=== PATIENT | male | born 1985 | race Caucasian/White ===

== ENCOUNTER 2020-10-15 05:10 | Emergency (ER) | payer SELFPAY ==
[~2020-10-15] VITALS: Ht 170.2 cm; Wt 89.8 kg
[2020-10-15 05:22] VITALS: BP 126/81
--- NOTE | 2020-10-15 05:32 | NUR ---
PT BIB SELF FOR C/O RLE SWELLING. PT REPORTS HE HAS HAD INTERMITTENT SWELLING OF BILATERAL LE SINCE APRIL, HOWEVER THE LAST 3 DAYS HIS RLE HAS BECOME RED AND SWOLLEN. PT DESCRIBES PAIN "HEAVY" WITH PAIN SCALE 8/10. POSITIVE SENSATION. DENIES NUMBNESS OR TINGLING. CAP REFILL < 3 SECONDS. DENIES OTC MEDICATIONS FOR PAIN. MED HX: DENIES ALLERGIES: DENIES
--- NOTE | 2020-10-15 06:06 | NUR ---
JORGE BOLANOS AT BEDSIDE,
[2020-10-15] MEDS ORDERED: PIPERACILLIN/TAZOBACTAM 3.375 GM in DEXTROSE 5% 50 ML IV ONE (06:15)
[2020-10-15] MEDS ORDERED: VANCOMYCIN 1,000 MG in DEXTROSE 5% 250 ML IV ONE (06:15)
[2020-10-15] MEDS ORDERED: NACL 0.9% 1,000 ML IV SCH (06:15)
[2020-10-15] MEDS ORDERED: KETOROLAC 30 MG/ML VIAL IVP ONE (06:15)
--- NOTE | 2020-10-15 06:30 | NUR ---
JORGE AT BEDSIDE FOR ULTRASOUND GUIDED IV. LABS DRAWN AND TAKEN TO LAB.
[2020-10-15] MEDS ORDERED: PIPERACILLIN/TAZOBACTAM 3.375 GM VIAL IV ONE (06:49)
--- NOTE | 2020-10-15 06:49 | NUR ---
Ultrasound at bedside.
--- NOTE | 2020-10-15 07:15 | NUR ---
REPORT GIVEN TO GÓMEZ DEL CID FOR CONTINUITY OF CARE.
--- NOTE | 2020-10-15 07:15 | NUR ---
REPORT RECEIVED FROM DAVIE MAGAÑA, TRANSFER OF CARE AT THIS TIME
[2020-10-15 07:27] LABS: BASOPHILS % (AUTO) 0.3 % (0.0-2.0); EOSINOPHILS % (AUTO) 0.1 % (0.0-4.0); HEMATOCRIT 33.1 % (36-52); LYMPHOCYTES # (AUTO) 1.2 K/uL (2.0-11.5); LYMPHOCYTES % (AUTO) 10.2 % (20.5-51.1); MEAN CORPUSCULAR HEMOGLOBIN 28 pg (27-31); MEAN CORPUSCULAR HGB CONC 33 g/dL (33-37); MEAN CORPUSCULAR VOLUME 83.1 fL (80-94); MONOCYTES # (AUTO) 0.7 K/uL (0.8-1.0); MONOCYTES % (AUTO) 6.1 % (1.7-9.3); NEUTROPHILS # (AUTO) 9.7 K/uL (1.8-7.7); NEUTROPHILS % (AUTO) 83.3 % (42.2-75.2); PLATELET COUNT (AUTO) 206 K/uL (140-450); RED BLOOD CELL COUNT(AUTO) 3.98 MIL/uL (4.20-6.10); RED CELL DISTRIBUTION WIDTH 14.7 % (11.6-13.7); WHITE BLOOD COUNT (AUTO) 11.6 K/uL (4.8-10.8)
[2020-10-15 07:33] LABS: ANION GAP 10.3 (8-16); CARBON DIOXIDE 27.4 mmol/L (21-32); CREATININE 1.3 mg/dL (0.6-1.3); POTASSIUM 3.7 mmol/L (3.5-5.1)
[2020-10-15] MEDS ORDERED: VANCOMYCIN 1,000 MG VIAL ONE (07:49)
--- NOTE | 2020-10-15 08:05 | NUR ---
PT STATES THAT HE DOES NOT WANT TO GET ADMITTED TO HOSPITAL. PT WAS INFORMED BY ERMD OF RISKS INVOLVED OF NOT WANTING ADMISSION TO HOSPITAL AND VERBALIZED UNDERSTAND AND SIGNED AMA. PER ERMD TO DISCHARGE PT WHEN ANTIBIOTICS ARE DONE.
[2020-10-15] MEDS ORDERED: SULF-59 PO (08:06)
[2020-10-15] MEDS ORDERED: CEPH-588 PO (08:06)
--- NOTE | 2020-10-15 09:00 | NUR ---
PT ALERT AND AWAKE, BREATHING EVEN AND UNLABORED. NO DISTRESS NOTED. ALL NEEDS MET AT THIS TIME. WILL CONTINUE TO MONITOR.
--- NOTE | 2020-10-15 09:45 | NUR ---
Patient discharged with v/s stable. Written and verbal after care instructions about cellulitis, edema given and explained. Patient alert, oriented and verbalized understanding of instructions. Ambulatory with steady gait. All questions addressed prior to discharge. ID band removed. Patient advised to follow up with PMD. Rx of keflex, bactrim DS given. Patient educated on indication of medication including possible reaction and side effects. Opportunity to ask questions provided and answered.
[2020-10-15 09:46] VITALS: BP 120/70
== END 2020-10-15 09:45 | disposition left against medical advice (07) ==
LOC: MED 05:10
DX: L03.115 Cellulitis of right lower limb (principal); Z20.822 Contact with and (suspected) exposure to COVID-19; F17.200 Nicotine dependence, unspecified, uncomplicated
CPT/HCPCS: 36415; 73590; 80048; 81002; 83605; 85025; 85651; 86140; 87040; 87426; 93971; 96361; 96365; 96366; 96367; 96375; 99285; J1885; J2543; J3370; J7030

== ENCOUNTER 2021-06-19 20:11 | Emergency (ER) | payer SELFPAY ==
[~2021-06-19] VITALS: Ht 152.4 cm; Wt 77.1 kg
[~2021-06-19 20:11] MED LIST: CEPH-588 PO; SULF-59 PO
[2021-06-19 20:19] VITALS: BP 138/72
--- NOTE | 2021-06-19 20:26 | NUR ---
PT TAKEN TO BED 8
--- NOTE | 2021-06-19 20:28 | NUR ---
Patient BIB by family from home. C/O right leg pain x 3-4 days. Patient reported, had cellulitis right leg and came to hospital. Rx IV Antibiotics and sent home with prescription. Patient did not refill medication. A/O,X4, right lower leg pain, redness, swelling, pain rate 7/10.
--- NOTE | 2021-06-19 22:05 | NUR ---
Dr. Yates examining patient.
[2021-06-19] MEDS ORDERED: CLINDAMYCIN IV ONE (22:20)
[2021-06-19] MEDS ORDERED: DEXTROSE 5% IV ONE (22:20)
[2021-06-19] MEDS ORDERED: NACL 0.9% 1,000 ML IV SCH (22:20)
--- NOTE | 2021-06-19 22:30 | NUR ---
Blood for labwork drawn from left hand per melter supervisor. Patient tolerated well.
[2021-06-19 22:43] LABS: BASOPHILS # (AUTO) 0.1 K/uL (0.00-0.22); BASOPHILS % (AUTO) 1.3 % (0.0-2.0); EOSINOPHILS % (AUTO) 0.2 % (0.0-4.0); HEMATOCRIT 31.9 % (36-52); HEMOGLOBIN 10.4 g/dL (12.0-18.0); LYMPHOCYTES % (AUTO) 8.8 % (20.5-51.1); MEAN CORPUSCULAR HEMOGLOBIN 26 pg (27-31); MEAN CORPUSCULAR HGB CONC 33 g/dL (33-37); MEAN CORPUSCULAR VOLUME 79.5 fL (80-94); MONOCYTES # (AUTO) 0.9 K/uL (0.8-1.0); MONOCYTES % (AUTO) 8.3 % (1.7-9.3); NEUTROPHILS # (AUTO) 8.8 K/uL (1.8-7.7); NEUTROPHILS % (AUTO) 81.4 % (42.2-75.2); PLATELET COUNT (AUTO) 325 K/uL (140-450); RED BLOOD CELL COUNT(AUTO) 4.01 MIL/uL (4.20-6.10); RED CELL DISTRIBUTION WIDTH 14.7 % (11.6-13.7); WHITE BLOOD COUNT (AUTO) 10.8 K/uL (4.8-10.8)
[2021-06-19] MEDS ORDERED: CLINDAMYCIN 600 MG/4 ML VIAL ONE (22:47)
[2021-06-19 23:00] LABS: ANION GAP 14.6 (8-16); CARBON DIOXIDE 25.6 mmol/L (21-32); CREATININE 0.8 mg/dL (0.6-1.3); POTASSIUM 3.2 mmol/L (3.5-5.1)
--- NOTE | 2021-06-20 00:20 | NUR ---
Patient appears to be resting comfortably in bed. Vital Signs within normal limits. Respirations even and unlabored.
[2021-06-20] MEDS ORDERED: MUPI2CRE22 TP (00:21)
[2021-06-20] MEDS ORDERED: CLIN300C52 PO (00:21)
[2021-06-20 00:30] VITALS: BP 138/72
--- NOTE | 2021-06-20 00:30 | NUR ---
Patient discharged with v/s stable. Written and verbal after care instructions given and explained. Patient alert, oriented and verbalized understanding of instructions. Ambulatory with steady gait. All questions addressed prior to discharge. ID band removed. Patient advised to follow up with PMD. Rx of Clindamycin and Mupiracin given. Patient educated on indication of medication including possible reaction and side effects. Opportunity to ask questions provided and answered.
== END 2021-06-20 00:30 | disposition home or self-care (01) ==
LOC: MED 20:11
DX: L03.115 Cellulitis of right lower limb (principal); Z71.6 Tobacco abuse counseling; F17.210 Nicotine dependence, cigarettes, uncomplicated; Z79.2 Long term (current) use of antibiotics
CPT/HCPCS: 36415; 80048; 85025; 87040; 96365; 99285; J3490; J7030

== ENCOUNTER 2021-08-17 23:45 | Emergency (ER) | payer SELFPAY ==
[~2021-08-17] VITALS: Ht 172.7 cm; Wt 68.0 kg
[~2021-08-17 23:45] MED LIST changes: +CLIN300C52 PO; +MUPI2CRE22 TP
[2021-08-17 23:49] VITALS: BP 114/77
--- NOTE | 2021-08-17 23:57 | NUR ---
PT W/C ASSISTED TO BED #10
--- NOTE | 2021-08-18 00:11 | NUR ---
36 YO/M BIB SIG OTHER W C/O R ANKLE PAIN 11/10 THROBBING CONSTANT NON-RAD XAPPROX 11 HOURS S/P JUMPING OFF A WALL AND TWISTING ANKLE OUTWARDS, + SWELLING. PT HAS LIMITED ROM TO R FOOT/ANKLE, SWELLING NOTED TO R LEG/FOOT/ANKLE. PT TOOK MOTRIN X45 MINS AGO. BREATHING EVEN AND UNLABORED., PT LAYING IN BED LOCKED IN LOWEST POSITIONS W X1 SIDERAIL UP, SIG OTHER AT OTHER BEDSIDE. PMH: DENIES ALLERGIES: DENIES
--- NOTE | 2021-08-18 01:22 | NUR ---
pt reports pain has improved.
--- NOTE | 2021-08-18 01:24 | NUR ---
posterior short leg splint applied to R leg, splint verified and approved by magdalena queen.
--- NOTE | 2021-08-18 01:26 | NUR ---
Note ilan in ED - 08/18/21 at 0127 by MOE pt sitting in bed talking and laughing w mother. breathing even and unlabored. awaiting discharge. will continue to monitor.
[2021-08-18] MEDS ORDERED: NAPR-54 PO (01:41)
--- NOTE | 2021-08-18 01:55 | NUR ---
PT CLEARED FOR DISCHARGE BY DR. PITT. ALL DISCHARGE INSTRUCTIONS AND MEDICATION ADMINISTRATION/SIDE EFFECTS EXPLAINED BY DR. PITT. RX OF NAPROSYN GIVEN.
== END 2021-08-18 01:55 | disposition home or self-care (01) ==
LOC: MED 23:45
DX: S82.831A Other fracture of upper and lower end of right fibula, initial encounter for closed fracture (principal); F17.210 Nicotine dependence, cigarettes, uncomplicated; F12.90 Cannabis use, unspecified, uncomplicated; F15.90 Other stimulant use, unspecified, uncomplicated; Z79.899 Other long term (current) drug therapy; W19.XXXA Unspecified fall, initial encounter; Y93.39 Activity, other involving climbing, rappelling and jumping off; Y92.89 Other specified places as the place of occurrence of the external cause; Y99.8 Other external cause status
CPT/HCPCS: 29515; 73610; 99283; Q0092

== ENCOUNTER 2022-05-23 19:37 | Inpatient (IN) | payer MEDICAID ==
[~2022-05-23] VITALS: Ht 170.2 cm; Wt 81.6 kg
[~2022-05-23 19:37] MED LIST changes: +NAPR-54 PO
[2022-05-23 20:38] VITALS: BP 116/62
[2022-05-23] MEDS ORDERED: VANCOMYCIN 1,000 MG in DEXTROSE 5% 250 ML IV ONE (23:30)
[2022-05-23] MEDS ORDERED: PIPERACILLIN/TAZOBACTAM 3.375 GM in DEXTROSE 5% 50 ML IV ONE (23:30)
[2022-05-23] MEDS ORDERED: LORazepam 2 MG/ML VIAL IVP ONE (23:30)
[2022-05-23] MEDS ORDERED: KETOROLAC 30 MG/ML VIAL IVP ONE (23:30)
[2022-05-23] MEDS ORDERED: NACL 0.9% 1,000 ML IV ONE (23:30)
--- NOTE | 2022-05-24 | NUR ---
PATIENT HAD A FEVER OF 102.0. ADMINISTERED TYLENOL TO PATIENT AND PROVIDED COOLING MEASURES. RECHECKED PATIENT'S VITALS AN HOUR LATER. CONTINUED TO MONITOR PATIENT. PATIENT'S TEMPERATURE WENT DOWN TO 98.4. PATIENT IS BREATHING NORMAL WITH SYMMETRICAL RISE AND FALL OF CHEST. WILL CONTINUE TO OBSERVE PATIENT.
[2022-05-24 00:07] LABS: BASOPHILS % (AUTO) 0.1 % (0.0-2.0); EOSINOPHILS # (AUTO) 0.1 K/uL (0-0.4); EOSINOPHILS % (AUTO) 0.2 % (0.0-4.0); HEMATOCRIT 30.3 % (36-52); HEMOGLOBIN 9.8 g/dL (12.0-18.0); LYMPHOCYTES # (AUTO) 0.7 K/uL (2.0-11.5); LYMPHOCYTES % (AUTO) 2.6 % (20.5-51.1); MEAN CORPUSCULAR HEMOGLOBIN 27 pg (27-31); MEAN CORPUSCULAR HGB CONC 32 g/dL (33-37); MEAN CORPUSCULAR VOLUME 83.6 fL (80-94); MONOCYTES # (AUTO) 0.7 K/uL (0.8-1.0); MONOCYTES % (AUTO) 2.6 % (1.7-9.3); NEUTROPHILS % (AUTO) 94.5 % (42.2-75.2); PLATELET COUNT (AUTO) 399 K/uL (140-450); RED BLOOD CELL COUNT(AUTO) 3.62 MIL/uL (4.20-6.10)
[2022-05-24 00:40] LABS: ANION GAP 12.6 (8-16); CARBON DIOXIDE 26.2 mmol/L (21-32); CREATININE 1.1 mg/dL (0.6-1.3); POTASSIUM 3.8 mmol/L (3.5-5.1)
[2022-05-24 00:42] LABS: WHITE BLOOD COUNT (AUTO) 27.5 K/uL (4.8-10.8)
[2022-05-24 01:01] LABS: TOTAL BILIRUBIN 0.7 mg/dL (0.0-1.0)
[2022-05-24 01:02] LABS: ALBUMIN 2.3 g/dL (3.4-5.0)
[2022-05-24] MEDS ORDERED: CALCIUM GLUCONATE 10% 1,000 MG in NACL 0.9% 50 ML IV ONE (01:30)
[2022-05-24] MEDS ORDERED: NACL 0.9% 1,000 ML IV ONE ×2 (01:30→06:05)
[2022-05-24] MEDS ORDERED: VANCOMYCIN 1,000 MG VIAL ONE (02:25)
[2022-05-24] MEDS ORDERED: LORazepam 2 MG/ML VIAL ONE (02:25)
[2022-05-24] MEDS ORDERED: KETOROLAC 30 MG/ML VIAL ONE (02:25)
[2022-05-24] MEDS ORDERED: PIPERACILLIN/TAZOBACTAM 3.375 GM VIAL IV ONE ×3 (02:26→13:56)
[2022-05-24] MEDS ORDERED: HYDROcodone/APAP 7.5/325 MG 1 TAB PO PRN (07:00)
[2022-05-24] MEDS ORDERED: ZOLPIDEM 5 MG TAB PO PRN (07:00)
[2022-05-24] MEDS: NACL 0.9% 1,000 ML IV SCH ×2 (07:00→23:40)
[2022-05-24] MEDS ORDERED: ONDANSETRON 4 MG/2 ML VIAL IM/IVP PRN (07:00)
[2022-05-24] MEDS ORDERED: guaiFENesin DM 200/20 MG-10 ML 10 ML UDC PO PRN (07:00)
[2022-05-24] MEDS ORDERED: DOCUSATE SODIUM 100 MG GELCAP PO PRN (07:00)
[2022-05-24] MEDS ORDERED: POTASSIUM CHLORIDE 10 MEQ TABER PO PRN (07:00)
[2022-05-24] MEDS ORDERED: VANCOMYCIN PER PHARMACY MC PRN (07:00)
--- NOTE | 2022-05-24 08:00 | NUR ---
PATIENT ADMITTED TO TELEMETRY WITH DX OF RLE CELLULITIS. PATIENT HAS PMH DVT, CELLULITIS AND POLYSUBSTANCE ABUSE. PATIENT STATES HIS RIGHT LEG HAS BEEN SWELLING THROUGHOUT THE PAST 5 YEARS. REDNESS IS NOTED FROM RIGHT TOES TO RIGHT KNEE. RIGHT LEG IS SWOLLEN AND BLISTERED AND IS WARM TO TOUCH. PATIENT IS OBTUNDED AND FALLS ASLEEP DURING ASSESSMENT. PATIENT NEEDS REORIENTATION AND REFOCUSING IN ORDER TO ANSWER YES OR NO QUESTIONS. RIGHT IJ CENTRAL LINE IS PATENT AND FLOWING WELL. LUNG SOUNDS ARE CLEAR, WILL CONTINUE WITH PLAN OF CARE.
[2022-05-24] MEDS: PANTOPRAZOLE 40 MG TABEC PO SCH (09:00)
[2022-05-24 09:02] LABS: ANION GAP 9.9 (8-16); CARBON DIOXIDE 27.4 mmol/L (21-32); CREATININE 1.1 mg/dL (0.6-1.3); POTASSIUM 3.3 mmol/L (3.5-5.1)
[2022-05-24 09:03] LABS: PROTHROMBIN TIME 11.4 secs (10.8-13.4)
[2022-05-24 09:08] LABS: CHOL/HDL RATIO 2.3 (1-4.5); MAGNESIUM 1.7 mg/dL (1.8-2.4); PHOSPHORUS 3.4 mg/dL (2.5-4.9)
--- NOTE | 2022-05-24 09:30 | NUR ---
DR. EUBANKS AT BEDSIDE, ASSESSING PATIENT, NO NEW ORDERS AT THIS TIME
[2022-05-24] MEDS ORDERED: CALCIUM GLUC 1 GM/50 mL NS BAG 50 ML IV ONE (10:17)
--- NOTE | 2022-05-24 10:53 | NUR ---
PATIENT ASLEEP IN BED, MNO S/S OF ACUTE DISTRESS NOTED
[2022-05-24 13:07] LABS: BARBITURATE, URINE NEGATIVE ng/ml (NEG <=200)
[2022-05-24 13:08] LABS: BENZODIAZEPINE, URINE NEGATIVE ng/mL (NEG <=200); CANNABINOID, URINE NEGATIVE ng/mL (NEG <=50); COCAINE, URINE NEGATIVE ng/mL (NEG <=300); OPIATE, URINE NEGATIVE ng/mL (NEG <=2000); PHENCYCLIDINE SCREEN,URINE NEGATIVE ng/mL (NEG <=25)
[2022-05-24] MEDS: PIPERACILLIN/TAZOBACTAM 3.375 GM in DEXTROSE 5% 50 ML IV SCH ×2 (13:59→22:30)
--- NOTE | 2022-05-24 14:40 | NUR ---
PATIENT ASLEEP IN BED, NO S/S OF ACUTE DISTRESS
[2022-05-24] MEDS ORDERED: VANCOMYCIN HCL 1.25 GM in DEXTROSE 5% 250 ML IV SCH (15:00)
--- NOTE | 2022-05-24 15:30 | NUR ---
Patient will be admitted to care of DR. EUBANKS. Admited to TELEMETY. Will go to [id number]. Belongings list completed. Report to GÓMEZ URENA.
--- NOTE | 2022-05-24 19:30 | NUR ---
RECEIVED REPORT FROM DAY SHIFT NURSE AYANNA FOR CONTINUITY OF CARE. PATIENT IS A&O X4. PATIENT IS ON ROOM AIR; BREATHING IS NORMAL WITH SYMMETRICAL RISE AND FALL OF CHEST. IV IS A TRIPLE LUMEN PICCLINE IN R JUGULAR AND A 20G LAC. PATIENT IS RUNNING NS 60. PATIENT IS SITTING UP IN BED, BED IS IN LOWEST POSITION WITH WHEELS LOCKED AND CALL LIGHT IN PLACE. WILL CONTINUE TO OBSERVE PATIENT.
[2022-05-24] MEDS: VANCOMYCIN 1.25GM PREMIX 250 ML IV SCH (19:38)
[2022-05-24 20:00] VITALS: BP 101/61
[2022-05-24] MEDS: ACETAMINOPHEN 325 MG TAB PO PRN (21:33)
[2022-05-25] VITALS: BP 104/42
[2022-05-25 04:00] VITALS: BP 109/53
--- NOTE | 2022-05-25 04:00 | NUR ---
PATIENT SLEPT THROUGHOUT THE NIGHT. BREATHING IS NORMAL WITH SYMMETRICAL RISE AND FALL OF CHEST. WILL CONTINUE TO OBSERVE PATIENT.
[2022-05-25] MEDS: PIPERACILLIN/TAZOBACTAM 3.375 GM in DEXTROSE 5% 50 ML IV SCH ×2 (04:15→13:31)
[2022-05-25] MEDS: VANCOMYCIN 1.25GM PREMIX 250 ML IV SCH ×2 (06:02→19:05)
--- NOTE | 2022-05-25 07:15 | NUR ---
ENDORSED TO DAY SHIFT NURSE JACQUIE FOR CONTINUITY OF CARE. PATIENT IS STABLE.
[2022-05-25 07:37] LABS: ANION GAP 13.1 (8-16); CARBON DIOXIDE 23.5 mmol/L (21-32); POTASSIUM 3.6 mmol/L (3.5-5.1)
[2022-05-25 07:41] LABS: BASOPHILS % (AUTO) 0.1 % (0.0-2.0); HEMOGLOBIN 8.4 g/dL (12.0-18.0); LYMPHOCYTES # (AUTO) 1.1 K/uL (2.0-11.5); LYMPHOCYTES % (AUTO) 4.1 % (20.5-51.1); MEAN CORPUSCULAR HEMOGLOBIN 27 pg (27-31); MEAN CORPUSCULAR HGB CONC 32 g/dL (33-37); MEAN CORPUSCULAR VOLUME 82.5 fL (80-94); MONOCYTES # (AUTO) 0.8 K/uL (0.8-1.0); MONOCYTES % (AUTO) 2.7 % (1.7-9.3); NEUTROPHILS # (AUTO) 26.4 K/uL (1.8-7.7); NEUTROPHILS % (AUTO) 93.1 % (42.2-75.2); PLATELET COUNT (AUTO) 411 K/uL (140-450); RED BLOOD CELL COUNT(AUTO) 3.15 MIL/uL (4.20-6.10); RED CELL DISTRIBUTION WIDTH 16.5 % (11.6-13.7)
[2022-05-25 07:43] LABS: WHITE BLOOD COUNT (AUTO) 28.3 K/uL (4.8-10.8)
[2022-05-25 08:00] VITALS: BP 91/55
[2022-05-25] MEDS: PANTOPRAZOLE 40 MG TABEC PO SCH (08:18)
[2022-05-25] MEDS ORDERED: MAGNESIUM OXIDE 400 MG TAB PO SCH (09:00)
--- NOTE | 2022-05-25 09:38 | NUR ---
PATIENT HAS BEEN SCREENED AND CATEGORIZED MODERATE NUTRITION RISK. PATIENT WILL BE SEEN WITHIN 3-5 DAYS OF ADMISSION. / REVIEWED BY CONOR PEDRAZA RD
--- NOTE | 2022-05-25 10:54 | NUR ---
WOUND CARE NOTE: PT. ASLEEP AND NOT AROUSABLE WHEN HIS NAME IS CALLED AND WHEN RLE LIFTED NO RESPOND EITHER, SNORE LOUDLY. RLE CELLULITIS NO OPEN WOUND SWELLING WITH ERYTHEMA FROM ABOVE KNEE TO DORSAL FOOT WITH MULTIPLE DRY PEELING BROWN SCABS. KEEP RLE ELEVATED, PAIN 0/10. POC DISCUSSED WITH PRIMARY RN KEIRY SUTTON PAINT MULTIPLE SCABS WITH BETADINE BID AND ELECTRICAL INSTRUMENTATION TECHNICIAN.
[2022-05-25 12:00] VITALS: BP 101/52
--- NOTE | 2022-05-25 12:18 | NUR ---
DC PLANNIN YRS OLD MALE PATIENT WAS ADMITTED FROM HOME WITH A DX OF CELLULITIS. PATIENT HAS A HX OF METH USE. DR STONE PERFORMED RIGHT LOWER LEG 4-COMPARTMENT FASCIOTOMY. ADMINISTERED IVF, IV ABX ZOSYN AND CLINDAMYCIN. DC PLAN TO GO HOME WITH HOME HEALTH CM TO FOLLOW Addendum: 06/02/22 at 1635 by Keesha Reed RN DC PLANNING: CALLED [facility] SPOKE WITH [facility] WILL BE HERE BETWEEN 2-4 HRS . NOTIFIED JUAN MAGAÑA ONCE WOUND VAC ARRIVED TO CHANGE THE WOUND VAC AND DC PATIENT HOME PER [facility] SHOWED HIM HOW TO DO IT VERBALIZED UNDERSTANDING. ARRANGED HOME HEALTH WITH [facility] [phone] WILL START THE CARE TOMORROW
[2022-05-25] MEDS: GAUZE TP SCH (13:32)
[2022-05-25 16:00] VITALS: BP 91/57
[2022-05-25] MEDS: NACL 0.9% 1,000 ML IV SCH (16:57)
--- NOTE | 2022-05-25 19:05 | NUR ---
ENDORSE PATIENT IN STABLE CONDITION TO PM SHIFT NURSE IN PRO-OP NPO STATUS, CENTER LINE R. TREY INFUSING VANCOMYCIN. PRO-OP DOCUMENT START, CONSENT SIGNED BY PATIENT
[2022-05-25 20:00] VITALS: BP 114/55
--- NOTE | 2022-05-25 20:00 | NUR ---
SURGICAL STAFF/TRANSPORTERS TOOK PATIENT AWAY MINUTES AGO FOR SURGERY VIA [facility]. PT CONDITION STABLE.
[2022-05-25] MEDS ORDERED: PROPOFOL 200 MG/20 ML VIAL IV ONE ×2 (20:12→20:59)
[2022-05-25] MEDS ORDERED: HYDROmorphone PFS 2 MG/ML SYR ONE ×2 (20:14→22:04)
[2022-05-25] MEDS ORDERED: MIDAZOLAM 2 MG/2 ML VIAL ONE ×2 (20:15→20:59)
[2022-05-25] MEDS ORDERED: SUCCINYLCHOLINE CHLORIDE 200 MG/10 ML VIAL IVP ONE ×2 (20:17→20:59)
[2022-05-25] MEDS ORDERED: METOCLOPRAMIDE 10 MG/2 ML INJ VIAL ONE ×2 (20:17→20:59)
[2022-05-25] MEDS ORDERED: ONDANSETRON 4 MG/2 ML VIAL ONE ×2 (20:17→20:59)
[2022-05-25] MEDS ORDERED: LIDOCAINE 2% 1000 MG/50 ML VIAL INJ ONE (20:32)
[2022-05-25] MEDS ORDERED: BUPIVACAINE-MPF 0.25% 30 ML VIAL INJ ONE (20:33)
[2022-05-25] MEDS ORDERED: fentaNYL citrate 0.05 MG/ML VIAL ONE ×2 (20:48→20:59)
[2022-05-25] MEDS ORDERED: KETAMINE 500 MG/5 ML VIAL ONE ×2 (20:51→20:59)
[2022-05-25] MEDS ORDERED: ROCURONIUM 50 MG/5 ML VIAL IV ONE ×2 (20:59→21:40)
[2022-05-25] MEDS ORDERED: HYDROmorphone 1 MG/ML AMP ONE (20:59)
[2022-05-25] MEDS ORDERED: SEVOFLURANE 250 ML BTL INH ONE (20:59)
[2022-05-25] MEDS ORDERED: NEOSTIGMINE 1:1000 10 MG/10 ML VIAL ONE (21:43)
[2022-05-25] MEDS ORDERED: GLYCOPYRROLATE 0.2 MG/ML VIAL ONE (21:44)
[2022-05-25] MEDS: DEXT 5% /NACL 0.9% 1,000 ML IV SCH (21:55)
[2022-05-25] MEDS ORDERED: ONDANSETRON 4 MG/2 ML VIAL IV PRN (21:55)
[2022-05-25] MEDS: HYDROmorphone 1 MG/ML AMP IVP PRN ×4 (22:00→22:40)
[2022-05-25] MEDS ORDERED: MEPERIDINE 25 MG/ML SYR IVP PRN (22:00)
[2022-05-25] MEDS ORDERED: ONDANSETRON 4 MG/2 ML VIAL IVP PRN (22:00)
[2022-05-25] MEDS: LACTATED RINGERS 1,000 ML IV SCH (22:00)
--- NOTE | 2022-05-25 22:55 | NUR ---
PT WAS TRANSPORTED BY HOSPITAL FROM OPERATING ROOM VIA GURNEY AND BACK TO UNIT, ROOM AND BED IN STABLE CONDITION.
--- NOTE | 2022-05-25 23:00 | NUR ---
PT ARRIVED BACK ON UNIT FROM OR VIA GURPAXTON AND ACCOMPANIED BY HOSPITAL STAFF NURSE. CONDITION STABLE.
[2022-05-26 04:00] VITALS: BP 103/57
[2022-05-26] MEDS: CLINDAMYCIN 600MG/D5W PM 50 ML IV SCH ×3 (04:43→23:35)
[2022-05-26] MEDS: LACTATED RINGERS 1,000 ML IV SCH ×3 (04:50→05:45)
[2022-05-26] MEDS: VANCOMYCIN 1.25GM PREMIX 250 ML IV SCH ×2 (06:02→19:00)
[2022-05-26 08:00] VITALS: BP 100/51
[2022-05-26 08:54] LABS: BASOPHILS % (AUTO) 0.1 % (0.0-2.0); EOSINOPHILS % (AUTO) 0.1 % (0.0-4.0); HEMATOCRIT 22.1 % (36-52); HEMOGLOBIN 7.1 g/dL (12.0-18.0); LYMPHOCYTES % (AUTO) 3.1 % (20.5-51.1); MEAN CORPUSCULAR HEMOGLOBIN 27 pg (27-31); MEAN CORPUSCULAR HGB CONC 32 g/dL (33-37); MEAN CORPUSCULAR VOLUME 82.6 fL (80-94); MONOCYTES % (AUTO) 3.3 % (1.7-9.3); NEUTROPHILS # (AUTO) 29.9 K/uL (1.8-7.7); NEUTROPHILS % (AUTO) 93.4 % (42.2-75.2); PLATELET COUNT (AUTO) 413 K/uL (140-450); RED BLOOD CELL COUNT(AUTO) 2.67 MIL/uL (4.20-6.10); RED CELL DISTRIBUTION WIDTH 16.8 % (11.6-13.7)
[2022-05-26] MEDS: PANTOPRAZOLE 40 MG TABEC PO SCH (09:46)
[2022-05-26 10:19] LABS: ANION GAP 14.8 (8-16); CREATININE 0.9 mg/dL (0.6-1.3); POTASSIUM 3.8 mmol/L (3.5-5.1)
[2022-05-26 12:00] VITALS: BP 100/51
[2022-05-26] MEDS: GAUZE TP SCH (13:00)
--- NOTE | 2022-05-26 13:00 | NUR ---
DC PLANNING ASSESSMENT COMPLETE PLEASE REFER TO ASSESSMENT FOR DETAILS PT REPORTS TENTATIVE DC PLAN IS TO RETURN TO THE AREA IN WHICH HE TYPICALLY STAYS. PT REPORTS HE WILL ARRANGE TRANSPORTATION WITH FRIENDS OF HIS, ONCE CLEARED FOR DC. Addendum: 05/26/22 at 1512 by Sinan Bush SS Amended: Links added.
[2022-05-26 16:00] VITALS: BP 100/51
[2022-05-26 20:00] VITALS: BP 110/70
--- NOTE | 2022-05-26 20:00 | NUR ---
RECEIVED PT IN BED ASLEEP, EASILY AROUSABLE BY VERBAL STIMULI. DENIES PAIN. DENIES SHORTNESS OF BREATH. RLE DRESSING CLEAN DRY AND INTACT. SKIN WAMR AND DRY TO TOUCH. SAFETY PRECAUTION IN PLACE, CALL LIGHT IN REACH.
--- NOTE | 2022-05-26 21:44 | NUR ---
SPOKE WITH ALEKSANDER OF [facility], [place] TO GIVE CLIDAMYCIN AT 0000 AND 0500 TO GET BACK ON THE RIGHT SCHEDULE.
[2022-05-27] VITALS: BP 102/54
[2022-05-27] MEDS: GAUZE TP SCH ×2 (01:08→13:04)
[2022-05-27 04:00] VITALS: BP 105/58
[2022-05-27] MEDS: CLINDAMYCIN 600MG/D5W PM 50 ML IV SCH ×3 (05:05→20:56)
[2022-05-27] MEDS: VANCOMYCIN 1.25GM PREMIX 250 ML IV SCH ×3 (06:02→21:49)
--- NOTE | 2022-05-27 06:14 | NUR ---
PATIENT IS ASLEEP. NO S/SX OF PAIN NOR DISCOMFORT. ALL NEEDS ATTENDED TO. SAFETY PRECAUTIONS MAINTAINED DURING THE SHIFT, CALL LIGHT WITHIN REACH.
--- NOTE | 2022-05-27 07:12 | NUR ---
RECEIVED REPORT FROM NIGHTSHIFT NURSE FLAKITA FOR CONTINUITY OF CARE. PT IN STABLE CONDITION.
[2022-05-27 07:38] LABS: ANION GAP 11.2 (8-16); CARBON DIOXIDE 24.5 mmol/L (21-32); CREATININE 0.8 mg/dL (0.6-1.3); POTASSIUM 3.7 mmol/L (3.5-5.1)
[2022-05-27 07:44] LABS: BASOPHILS # (AUTO) 0.1 K/uL (0.00-0.22); BASOPHILS % (AUTO) 0.3 % (0.0-2.0); EOSINOPHILS # (AUTO) 0.1 K/uL (0-0.4); EOSINOPHILS % (AUTO) 0.4 % (0.0-4.0); HEMOGLOBIN 7.7 g/dL (12.0-18.0); LYMPHOCYTES # (AUTO) 1.5 K/uL (2.0-11.5); LYMPHOCYTES % (AUTO) 4.8 % (20.5-51.1); MEAN CORPUSCULAR HEMOGLOBIN 27 pg (27-31); MEAN CORPUSCULAR HGB CONC 32 g/dL (33-37); MEAN CORPUSCULAR VOLUME 82.7 fL (80-94); MONOCYTES # (AUTO) 1.2 K/uL (0.8-1.0); MONOCYTES % (AUTO) 3.7 % (1.7-9.3); NEUTROPHILS # (AUTO) 28.7 K/uL (1.8-7.7); NEUTROPHILS % (AUTO) 90.8 % (42.2-75.2); PLATELET COUNT (AUTO) 304 K/uL (140-450); RED CELL DISTRIBUTION WIDTH 16.7 % (11.6-13.7)
[2022-05-27 07:48] LABS: WHITE BLOOD COUNT (AUTO) 31.7 K/uL (4.8-10.8)
--- NOTE | 2022-05-27 07:48 | NUR ---
RECEIVED CALL FROM LAB, CRITICAL LAB VALUE WBC 31.7. DR. LYON NOTIFIED AND AWARE.
[2022-05-27 08:00] VITALS: BP 111/64
[2022-05-27] MEDS: DEXT 5% /NACL 0.9% 1,000 ML IV SCH ×2 (09:29→13:55)
[2022-05-27] MEDS: PANTOPRAZOLE 40 MG TABEC PO SCH (09:30)
--- NOTE | 2022-05-27 10:01 | NUR ---
SPOKE TO PT'S MOTHER REGARDING UPDATE ON PT'S CONDITION.
[2022-05-27] MEDS: MORPHINE SULFATE 2 MG/ML SYR IVP PRN ×2 (10:29→15:02)
--- NOTE | 2022-05-27 10:29 | NUR ---
MEDICATED PT WITH PRN MORPHINE AND TYLENOL FOR RIGHT LOWER EXTREMITY PAIN AND SWELLING.
[2022-05-27] MEDS: ACETAMINOPHEN 325 MG TAB PO PRN (10:30)
[2022-05-27] MEDS: HYDROmorphone 1 MG/ML AMP IVP PRN (13:04)
--- NOTE | 2022-05-27 13:05 | NUR ---
MEDICATED PRN DILAUDID FOR PAIN 10/10 FOR DRESSING CHANGE DONE BY INSTRUMENT MECHANIC .
--- NOTE | 2022-05-27 13:15 | NUR ---
WOUND CARE NOTE: WOUND ASSESSMENT DONE TO RLE S/P FASCIITIS/ SEPSIS. WOUND PHOTOS OBTAINS, PRIMARY RN WILLIE AT BED SIDE, POINT OUT TENDON EXPOSE AND NEED TO COVER WITH OIL EMULSION DRESSING. POC DISCUSSED WITH WILLIE. POC DISCUSSED WITH PT. PT. STATE HE WILL STAY WITH HIS MOTHER WHERE THE HOME HEALTH NURSE CAN HELP THE WOUND CARE. POC DISCUSSED WITH FRESH WORK WRAPPER LAYER DUANE AND INFORM IF OKAY FOR WOUND VAC. NO ANSWER FROM DR. STONE. REQUEST PRIMARY RN WILLIE TO FOLLOW UP. -SURGICAL WOUND RLE MEDIAL ASPECT WITH [id number] LARGE AMOUNT SEROSANGUINEOUS DRAINAGE, NO ODOR. WOUND EDGE FLAT, SRINIVASAN-WOUND SKIN DRY AND INTACT. -SURGICAL WOUND RLE LATERAL ASPECT WITH 34X6X3.2CM, 3CM IN LENGTH OF HEALTHY SHINY TENDON EXPOSED, LARGE AMOUNT SEROSANGUINEOUS DRAINAGE, NO ODOR. WOUND EDGE FLAT, SRINIVASAN-WOUND SKIN DRY AND INTACT. RECOMMENDATIONS: -RINSE RLE WOUNDS WITH NS, PAT DRY, APPLY OIL EMULSION DRESSING TO WOUND BED, PACK WOUND WITH FANFOLD ONE PIECE KERLIX ROLL, COVER WITH ABD PADS, WRAP WITH KERLIX ROLLS AND ADRIANA BANDAGE DAILY AND PRN IF SOILING. -ELEVATE RLE WITH PILLOWS WITH OFFLOADING
--- NOTE | 2022-05-27 15:03 | NUR ---
MEDICATED PRN MORPHINE FOR LEG PAIN 11/10.
[2022-05-27 16:00] VITALS: BP 104/61
--- NOTE | 2022-05-27 16:07 | NUR ---
05/27/22 RD INITIAL ASSESSMENT COMPLETED PLEASE REFER TO NUTRITION ASSESSMENT UNDER CARE ACTIVITY FOR ESTIMATED NUTRITIONAL NEEDS. 1. CONTINUE REGULAR DIET TOLERATED. 2. RECOMMEND ENSURE BID. 3. MONITOR GI, PO INTAKE, LAB VALUES. 4. RD TO FOLLOW-UP 3-5 DAYS, MODERATE RISK. REVIEWED BY CONOR PEDRAZA RD
[2022-05-27] MEDS ORDERED: NON ADHERENT DRESSING TP PRN (16:35)
[2022-05-27] MEDS: HYDROcodone/APAP 5/325 MG 1 TAB TAB PO PRN (17:19)
--- NOTE | 2022-05-27 17:19 | NUR ---
MEDICATED PT WITH PRN NORCO FOR RIGHT LOWER EXTREMITY PAIN.
[2022-05-27] MEDS: MORPHINE SULFATE 4 MG/ML SYR IV PRN ×2 (18:51→23:08)
--- NOTE | 2022-05-27 18:56 | NUR ---
MEDICATED PT WITH PRN MORPHINE FOR BREAKTHROUGH PAIN 10/10 ON RIGHT LOWER EXTREMITY.
--- NOTE | 2022-05-27 19:03 | NUR ---
ENDORSED PT TO NIGHTSHIFT NURSE BOGGS FOR CONTINUITY OF CARE. PT IN STABLE CONDITION.
--- NOTE | 2022-05-27 19:30 | NUR ---
RECEIVED REPORT FROM ELECTRIC DISTRIBUTION ENGINEER NURSE FLAKITA FOR CONTINUITY OF CARE. PATIENT IS A&O X4. PATIENT IS ON ROOM AIR, BREATHING IS NORMAL WITH SYMMETRICAL RISE AND FALL OF CHEST. PATIENT'S IV IS A TRIPLE LUMEN PICCLINE R JUGULAR, RUNNING D5 NS 50. PATIENT IS SLEEPING, LYING SEMI FOWLERS. BED IS IN LOWEST POSITION, WHEELS LOCKED CALL LIGHT IN PLACE. WILL CONTINUE TO OBSERVE PATIENT.
[2022-05-27 20:00] VITALS: BP 114/66
--- NOTE | 2022-05-28 | NUR ---
NURSE NOTES MEDICATED FOR PAIN WITH MORPHINE 4 MG IVP AT 2207 WITH MORE RELIEF. SLEEPING WHEN MN VS BEING TAKEN. IVPB PCN BEING GIVEN EVERY 4 HR. TEMP 99.7. TELE MONITOR SR/SA PAC 73 BPM. Addendum: 05/29/22 at 0250 by Agency 05 RN RN CORRECTION: TIME IS 05/29/22 0000 AND NOT 05/28/22 0000.
[2022-05-28] MEDS: GAUZE TP SCH ×2 (01:37→13:31)
[2022-05-28 04:00] VITALS: BP 100/49
[2022-05-28] MEDS: HYDROmorphone 1 MG/ML AMP IVP PRN ×5 (04:27→20:34)
[2022-05-28] MEDS: CLINDAMYCIN 600MG/D5W PM 50 ML IV SCH ×3 (04:40→20:52)
--- NOTE | 2022-05-28 06:30 | NUR ---
DR. WATKINS ORDERED PENICILLIN IV 2 MILLION UNITS Q4HR TO BE STARTED TONIGHT. ATTEMPTED TO PUT IN ORDER, BUT PENICILLIN ONLY SHOWED UP PO AND IM. CONTACTED PHARMACY, PHARMACIST SAID THAT PENICILLIN CAN ONLY BE GIVEN IM OR PO, NOT IV. MESSAGED DR. WATKINS; NO RESPONSE. LATER MESSAGED HIM AGAIN; STILL NO RESPONSE. PAGED DR. WATKINS FROM HIS EXCHANGE; STILL PENDING RESPONSE.
--- NOTE | 2022-05-28 07:46 | NUR ---
ENDORSED TO DAY SHIFT NURSE CHEIKH FOR CONTINUITY OF CARE. PATIENT IS STABLE.
[2022-05-28 08:02] LABS: BASOPHILS # (AUTO) 0.1 K/uL (0.00-0.22); BASOPHILS % (AUTO) 0.3 % (0.0-2.0); EOSINOPHILS % (AUTO) 0.2 % (0.0-4.0); HEMATOCRIT 25.1 % (36-52); HEMOGLOBIN 8.1 g/dL (12.0-18.0); LYMPHOCYTES # (AUTO) 1.9 K/uL (2.0-11.5); MEAN CORPUSCULAR HEMOGLOBIN 27 pg (27-31); MEAN CORPUSCULAR HGB CONC 32 g/dL (33-37); MONOCYTES # (AUTO) 1.5 K/uL (0.8-1.0); MONOCYTES % (AUTO) 6.3 % (1.7-9.3); NEUTROPHILS # (AUTO) 19.8 K/uL (1.8-7.7); NEUTROPHILS % (AUTO) 85.2 % (42.2-75.2); PLATELET COUNT (AUTO) 591 K/uL (140-450); RED BLOOD CELL COUNT(AUTO) 3.02 MIL/uL (4.20-6.10); RED CELL DISTRIBUTION WIDTH 16.7 % (11.6-13.7)
[2022-05-28 08:10] LABS: WHITE BLOOD COUNT (AUTO) 23.2 K/uL (4.8-10.8)
[2022-05-28 08:36] LABS: ANION GAP 10.8 (8-16); CARBON DIOXIDE 23.8 mmol/L (21-32); CREATININE 0.8 mg/dL (0.6-1.3); POTASSIUM 3.6 mmol/L (3.5-5.1)
[2022-05-28] MEDS: PANTOPRAZOLE 40 MG TABEC PO SCH (09:16)
[2022-05-28] MEDS: DEXT 5% /NACL 0.9% 1,000 ML IV SCH (09:55)
[2022-05-28] MEDS ORDERED: PENICILLIN G BENZATHINE C-R 1.2 MU/2 ML SYR IM ONE (12:45)
[2022-05-28] MEDS: PENICILLIN G POTASSIUM 2 MU in NACL 0.9% 50 ML IV SCH ×4 (13:00→23:32)
[2022-05-28] MEDS: NON ADHERENT DRESSING TP SCH (13:32)
[2022-05-28] MEDS: MORPHINE SULFATE 2 MG/ML SYR IVP PRN (14:04)
[2022-05-28] MEDS: LORazepam 2 MG/ML VIAL IVP PRN (14:06)
[2022-05-28 17:32] VITALS: BP 117/66
[2022-05-28 20:00] VITALS: BP 107/55
--- NOTE | 2022-05-28 20:00 | NUR ---
NURSE REPORT REPORT OBTAINED FROM [facility] NURSE CHEIKH AND THIS NURSE ASSUMED CARE OF PATIENT. IV D5 NS INTACT AND INFUSING INTO R IJ AT 50 ML/HR. VOIDED YELLOW URINE IN URINAL.
--- NOTE | 2022-05-28 21:34 | NUR ---
NURSE NOTES MEDICATED WITH DILAUDID 1 MG IVP AT 2033 FOR PAIN 11/10 WITH SOME RELIEF
[2022-05-28] MEDS: MORPHINE SULFATE 4 MG/ML SYR IV PRN (22:07)
[2022-05-28 23:30] VITALS: BP 108/64
--- NOTE | 2022-05-29 | NUR ---
NURSE NOTES MEDICATED FOR PAIN WITH MORPHINE 4 MG IVP AT 2207 WITH MORE RELIEF. SLEEPING WHEN MN VS BEING TAKEN. IVPB PCN BEING GIVEN EVERY 4 HR. TEMP 99.7. TELE MONITOR SR/SA PAC 73 BPM.
[2022-05-29] MEDS: GAUZE TP SCH ×2 (01:37→13:00)
[2022-05-29 04:00] VITALS: BP 134/63
[2022-05-29] MEDS: PENICILLIN G POTASSIUM 2 MU in NACL 0.9% 50 ML IV SCH ×6 (04:04→21:30)
[2022-05-29] MEDS: MORPHINE SULFATE 4 MG/ML SYR IV PRN ×3 (04:24→17:10)
--- NOTE | 2022-05-29 04:24 | NUR ---
NURSE NOTES VSS. AFEB. C/O PAIN 12/11. GIVEN MORPHINE 4 MG IVP THRU IV LINE. D5NS INFUSING AT 50 ML/HR. TELE WITH SR 92.
[2022-05-29] MEDS: DEXT 5% /NACL 0.9% 1,000 ML IV SCH (04:41)
[2022-05-29] MEDS: CLINDAMYCIN 600MG/D5W PM 50 ML IV SCH ×3 (04:41→21:38)
[2022-05-29 06:55] LABS: HEMATOCRIT 24.1 % (36-52); HEMOGLOBIN 7.9 g/dL (12.0-18.0); MEAN CORPUSCULAR HEMOGLOBIN 27 pg (27-31); MEAN CORPUSCULAR HGB CONC 33 g/dL (33-37); MEAN CORPUSCULAR VOLUME 82.2 fL (80-94); PLATELET COUNT (AUTO) 652 K/uL (140-450); RED BLOOD CELL COUNT(AUTO) 2.94 MIL/uL (4.20-6.10); RED CELL DISTRIBUTION WIDTH 16.5 % (11.6-13.7); WHITE BLOOD COUNT (AUTO) 18.4 K/uL (4.8-10.8)
[2022-05-29 07:21] LABS: ANION GAP 10.7 (8-16); CARBON DIOXIDE 24.2 mmol/L (21-32); CREATININE 0.9 mg/dL (0.6-1.3); POTASSIUM 3.9 mmol/L (3.5-5.1)
--- NOTE | 2022-05-29 07:25 | NUR ---
NURSE REPORT REPORT GIVEN TO [facility] NURSE SANTHOSH TO ASSUME CARE OF PATIENT. ALL QUESTIONS ANSWERED. ERNESTINA HENDERSON RN
--- NOTE | 2022-05-29 07:36 | NUR ---
PT IS AWAKE ASKING FOR PAIN MED, DISCUSSED [id number]
--- NOTE | 2022-05-29 07:49 | NUR ---
RECEIVED REPORT FROM DUTY OFFICER NURSE. PT IS FOUND AWAKE AND RESTING IN BED. PT REPORTS PAIN 9/10 AND REQUESTS PAIN MEDICATION. VITAL SIGNS ARE WITHIN NORMAL LIMITS.
[2022-05-29 07:57] LABS: BASOPHILS % (MANUAL) 0 % (0-2); EOSINOPHILS % (MANUAL) 0 % (0-4); LYMPHOCYTES % (MANUAL) 12 % (20-46); MONOCYTES % (MANUAL) 13 % (5-12)
[2022-05-29] MEDS: HYDROmorphone 1 MG/ML AMP IVP PRN ×3 (07:57→20:00)
--- NOTE | 2022-05-29 08:03 | NUR ---
PAIN MEDICATION WAS ADMINISTERED FOR 9/10 PAIN. PT TOLERATED MED ADMINISTRATION WELL. WILL REASSESS PAIN.
[2022-05-29] MEDS: PANTOPRAZOLE 40 MG TABEC PO SCH (08:18)
--- NOTE | 2022-05-29 09:00 | NUR ---
PT IS FOUND SLEEPING IN BED. REASSESSED PAIN AFTER BIOFUELS TECHNOLOGY MANAGER, PT STATES DECREASED PAIN. NOT IN DISTRESS. PT RETURNED TO SLEEP.
--- NOTE | 2022-05-29 11:33 | NUR ---
PT AWAKE, ALERT AND ORIENTED. PT REPORTS PAIN 9/10 IN RIGHT LOWER EXTREMITY, PAIN ASSESSMENT DONE. PRN PAIN MEDICATION ADMINISTERED. PT TOLERATED MED ADMINISTRATION WELL.
[2022-05-29 12:00] VITALS: BP 101/65
[2022-05-29] MEDS: NON ADHERENT DRESSING TP SCH (13:00)
--- NOTE | 2022-05-29 13:11 | NUR ---
PT IS FOUND RESTING IN BED. IVPB ABX ADMINISTERED ORDERED. NO SIGNS OF REDNESS/IRRITATION AT THE IV SITE.
--- NOTE | 2022-05-29 13:45 | NUR ---
PT REPORTS PAIN 9/10 AND WAS ADMINISTERED PAIN MEDICATION. PAIN MED WAS ALSO ADMINISTERED PREPARATION FOR WOUND CARE. WOUND AND WOUND DRESSING ASSESSED. SEROSANGUINOUS DRAINAGE NOTED. NO ODOR. WOUND DRESSED APPROPRIATELY. PT TOLERATED WOUND CARE WELL.
[2022-05-29] MEDS: LORazepam 2 MG/ML VIAL IVP PRN ×2 (14:27→22:25)
--- NOTE | 2022-05-29 18:22 | NUR ---
PT IS ASLEEP IN BED, VITAL SIGNS ARE WITHIN NORMAL LIMITS. NO SIGNS OF DISTRESS. BED IS IN LOWEST POSITION, CALL LIGHT PLACED WITHIN REACH.
[2022-05-29 20:00] VITALS: BP 96/77
--- NOTE | 2022-05-29 20:00 | NUR ---
NURSE REPORT REPORT OBTAINED FROM [facility] NURSE MONACO AND THIS NURSE ASSUMED CARE OF PATIENT. IV D5 NS INTACT AND INFUSING INTO R IJ AT 50 ML/HR. VOIDED YELLOW URINE IN URINAL. RECEIVING ATB ZOSYN AND CLEOCIN ORDERED. VSS. AFEB.
[2022-05-29] MEDS: MORPHINE SULFATE 2 MG/ML SYR IVP PRN ×2 (21:30→22:25)
--- NOTE | 2022-05-29 21:30 | NUR ---
NURSE NOTES MEDICATED FOR PAIN WITH DILAUDID 1 MG IVP AT 1999 WITH SLIGHT RESULT, AND MORPHINE 2 MG GIVEN AT 2129.
--- NOTE | 2022-05-29 22:25 | NUR ---
NURSE NOTES EDICATED WITH MORPHINE 2 MG IVP AT 0 AND ANOTHER 2 MG GIVEN AT 2224. PATIENT NEEDED 4 MG IVP.
--- NOTE | 2022-05-30 | NUR ---
NURSE NOTES VSS. AFEB. RECEIVED PCN AND CLINDAMYCIN ATB. UP TO BATHROOM AND HAD A BM.
[2022-05-30] MEDS: HYDROmorphone 1 MG/ML AMP IVP PRN ×5 (00:27→22:44)
[2022-05-30 00:37] VITALS: BP 95/54
[2022-05-30] MEDS: GAUZE TP SCH ×2 (01:00→13:00)
[2022-05-30] MEDS: DEXT 5% /NACL 0.9% 1,000 ML IV SCH ×2 (01:55→22:09)
[2022-05-30] MEDS: PENICILLIN G POTASSIUM 2 MU in NACL 0.9% 50 ML IV SCH ×6 (03:36→23:36)
[2022-05-30 04:00] VITALS: BP 116/60
[2022-05-30] MEDS: CLINDAMYCIN 600MG/D5W PM 50 ML IV SCH ×3 (05:00→20:29)
[2022-05-30] MEDS: MORPHINE SULFATE 4 MG/ML SYR IV PRN ×7 (05:15→20:29)
--- NOTE | 2022-05-30 05:15 | NUR ---
NURSE NOTES MEDICATED FOR PAIN WITH MORPHINE 4 MG IVP WITH RELIEF. VS TAKEN AND TEMP 99.7F. TELE MONITOR AT [address]
--- NOTE | 2022-05-30 06:25 | NUR ---
NURSE NOTES MEDICATED WITH DILAUDID 1 MG IVP. BLOOD DRAWN BY THIS NURSE FROM THE R IJ AND FLUSHED WITH NS.
[2022-05-30 06:58] LABS: ANION GAP 8.3 (8-16); CARBON DIOXIDE 26.4 mmol/L (21-32); CREATININE 0.9 mg/dL (0.6-1.3); POTASSIUM 3.7 mmol/L (3.5-5.1)
[2022-05-30 07:02] LABS: BASOPHILS # (AUTO) 0.1 K/uL (0.00-0.22); BASOPHILS % (AUTO) 0.3 % (0.0-2.0); EOSINOPHILS # (AUTO) 0.1 K/uL (0-0.4); EOSINOPHILS % (AUTO) 0.6 % (0.0-4.0); HEMATOCRIT 24.7 % (36-52); HEMOGLOBIN 7.9 g/dL (12.0-18.0); LYMPHOCYTES # (AUTO) 2.3 K/uL (2.0-11.5); MEAN CORPUSCULAR HEMOGLOBIN 27 pg (27-31); MEAN CORPUSCULAR HGB CONC 32 g/dL (33-37); MEAN CORPUSCULAR VOLUME 83.7 fL (80-94); MONOCYTES # (AUTO) 0.9 K/uL (0.8-1.0); MONOCYTES % (AUTO) 5.7 % (1.7-9.3); NEUTROPHILS % (AUTO) 78.4 % (42.2-75.2); PLATELET COUNT (AUTO) 600 K/uL (140-450); RED BLOOD CELL COUNT(AUTO) 2.95 MIL/uL (4.20-6.10); RED CELL DISTRIBUTION WIDTH 16.5 % (11.6-13.7); WHITE BLOOD COUNT (AUTO) 15.2 K/uL (4.8-10.8)
--- NOTE | 2022-05-30 07:33 | NUR ---
NURSE REPORT REPORT GIVEN TO [facility] NURSE SOUZA TO ASSUME CARE OF PATIENT. ALL QUESTIONS ANSWERED. ERNESTINA HENDERSON RN
[2022-05-30 08:00] VITALS: BP 116/68
--- NOTE | 2022-05-30 09:23 | NUR ---
[address] [place] [address] ORDERED WITH REF# [id number].
[2022-05-30] MEDS: PANTOPRAZOLE 40 MG TABEC PO SCH (09:30)
[2022-05-30 12:00] VITALS: BP 113/69
[2022-05-30] MEDS: NON ADHERENT DRESSING TP SCH (13:00)
[2022-05-30] MEDS: HYDROcodone/APAP 5/325 MG 1 TAB TAB PO PRN (14:42)
--- NOTE | 2022-05-30 14:59 | NUR ---
WOUND ASSESSMENT AND WOUND VAC DRESSING APPLIED PER MANUFACTURE GUIDELINE WITH BRIDGE TECHNIQUE TO CONNECT LATERAL AND MEDIAL ASPECTS OF WOUNDS. PT. TOLERATE PROCEDURES WITH PRE MEDICATED FOR PAIN. VAC IS FUNCTION. POC DISCUSSED WITH PT. PT. VERBALIZES UNDERSTANDING. WILL DISCONTINUE PREVIOUS ORDER AND START [facility] VAC THERAPY TO RLE WOUNDS, FOLLOW [facility] THERAPY CLINICAL GUIDELINES. SET THERAPY ON CONTINUOUS THERAPY AT 125 MMHG. CHANGE DRESSING Q 72 HOURS AND PRN. -SURGICAL WOUND RLE MEDIAL ASPECT WITH [id number] LARGE AMOUNT SEROSANGUINEOUS DRAINAGE, NO ODOR. WOUND EDGE FLAT, SRINIVASAN-WOUND SKIN DRY AND INTACT. -SURGICAL WOUND RLE LATERAL ASPECT WITH 31X4X3 CM, 3CM IN LENGTH OF HEALTHY SHINY TENDON EXPOSED, LARGE AMOUNT SEROSANGUINEOUS DRAINAGE, NO ODOR. WOUND EDGE FLAT, SRINIVASAN-WOUND SKIN DRY AND INTACT.
[2022-05-30 16:00] VITALS: BP 116/78
[2022-05-30] MEDS: LORazepam 2 MG/ML VIAL IVP PRN (16:25)
--- NOTE | 2022-05-30 19:10 | NUR ---
RECEIVED PT IN BED ASLEEP. NO S/SX OF PAIN NOR DISCOMFORT. NO ACUTE RESPIRATORY DISTRESS. WOUND VAC IN PLACE, CALL LIGHT IN REACH.
[2022-05-30 20:00] VITALS: BP_SYST 116; BP_DIAS 7; BP_DIAS 70
[2022-05-31] VITALS: BP 111/68
[2022-05-31] MEDS: GAUZE TP SCH ×2 (00:35→12:48)
[2022-05-31] MEDS: MORPHINE SULFATE 4 MG/ML SYR IV PRN ×3 (01:11→12:43)
[2022-05-31] MEDS: HYDROmorphone 1 MG/ML AMP IVP PRN ×4 (03:08→21:41)
[2022-05-31] MEDS: PENICILLIN G POTASSIUM 2 MU in NACL 0.9% 50 ML IV SCH ×5 (03:53→20:24)
[2022-05-31 04:00] VITALS: BP 115/71
[2022-05-31] MEDS: CLINDAMYCIN 600MG/D5W PM 50 ML IV SCH ×3 (04:56→21:15)
--- NOTE | 2022-05-31 06:12 | NUR ---
PATIENT IS ASLEEP. NO DISTRESS NOTED. ALL NEEDS ATTENDED TO. SAFETY PRECAUTIONS MAINTAINED DURING THE SHIFT, CALL LIGHT REMAINED WITHIN REACH.
--- NOTE | 2022-05-31 07:09 | NUR ---
receive the patient from the retail shift leader rn in rm [id number] aox4 admitting diagnosis of cellulitis of the right leg . still on wound vacuum .will continue to monitor
[2022-05-31 07:27] LABS: BASOPHILS % (AUTO) 0.2 % (0.0-2.0); EOSINOPHILS # (AUTO) 0.1 K/uL (0-0.4); EOSINOPHILS % (AUTO) 0.8 % (0.0-4.0); HEMATOCRIT 24.1 % (36-52); LYMPHOCYTES # (AUTO) 2.1 K/uL (2.0-11.5); LYMPHOCYTES % (AUTO) 15.1 % (20.5-51.1); MEAN CORPUSCULAR HEMOGLOBIN 27 pg (27-31); MEAN CORPUSCULAR HGB CONC 33 g/dL (33-37); MEAN CORPUSCULAR VOLUME 81.9 fL (80-94); MONOCYTES # (AUTO) 0.8 K/uL (0.8-1.0); MONOCYTES % (AUTO) 5.6 % (1.7-9.3); NEUTROPHILS % (AUTO) 78.3 % (42.2-75.2); PLATELET COUNT (AUTO) 753 K/uL (140-450); RED BLOOD CELL COUNT(AUTO) 2.94 MIL/uL (4.20-6.10); RED CELL DISTRIBUTION WIDTH 16.6 % (11.6-13.7); WHITE BLOOD COUNT (AUTO) 14.1 K/uL (4.8-10.8)
[2022-05-31 07:40] LABS: ANION GAP 10.9 (8-16); CARBON DIOXIDE 25.3 mmol/L (21-32); CREATININE 0.8 mg/dL (0.6-1.3); POTASSIUM 4.2 mmol/L (3.5-5.1)
[2022-05-31 08:00] VITALS: BP 120/74
--- NOTE | 2022-05-31 08:30 | NUR ---
administered dilaudid for right leg pain . will continue to monitor
[2022-05-31] MEDS: PANTOPRAZOLE 40 MG TABEC PO SCH (08:33)
[2022-05-31 12:00] VITALS: BP 127/77
[2022-05-31] MEDS: NON ADHERENT DRESSING TP SCH (12:48)
--- NOTE | 2022-05-31 13:40 | NUR ---
discontinue heart monitor . on medical srgical status now
[2022-05-31 16:00] VITALS: BP 128/80
[2022-05-31] MEDS: DEXT 5% /NACL 0.9% 1,000 ML IV SCH (16:44)
--- NOTE | 2022-05-31 19:00 | NUR ---
RECEIVED PT FROM MORNING SHIFT NURSE. PT IS AOX4, BEDBOUND, ABLE TO VERBALIZE NEEDS AND ABLE TO FOLLOW COMMANDS. PT IS ON ROOM AIR AND ON REGULAR DIET. PT HAS PICC LINE ON RIGHT IJ TRIPLE LUMEN RUNNING AT D5NS AT 50 ML/HR. PT HAS RIGHT LEG SURGICAL WOUND. NO COMPLAIN OF PAIN AT THIS TIME AND NO S/S OF RESPIRATORY DISTRESS NOTED. ALL SAFETY MEASURES IMPLEMENTED. BED IN LOW POSITION, BED WHEELS ON LOCKED AND CALL LIGHT WITHIN REACH.
[2022-05-31 20:00] VITALS: BP 96/52
--- NOTE | 2022-05-31 20:20 | NUR ---
NOTIFIED DR. LYON THAT PT IS ON RIGHT LEG PAIN WITH PAIN SCALE OF 9/10 AND BP IS 96/52. DR. LYON ORDER 1L NS BOLUS AND TORADOL 15MG IV ONCE. ORDER WAS MADE AND CARRIED OUT.
--- NOTE | 2022-05-31 20:24 | NUR ---
SCHEDULED AND PRESCRIBED MEDICATION WAS GIVEN TO PT PER MD ORDER. ALL SAFETY MEASURES IMPLEMENTED. BED IN LOW POSITION, BED WHEELS ON LOCKED AND CALL LIGHT WITHIN REACH.
[2022-05-31] MEDS ORDERED: KETOROLAC 15 MG/ML VIAL IM SCH (21:00)
[2022-05-31] MEDS ORDERED: NACL 0.9% 1,000 ML IV ONE (21:00)
[2022-05-31] MEDS ORDERED: KETOROLAC 15 MG/ML VIAL IVP SCH (21:15)
--- NOTE | 2022-05-31 21:23 | NUR ---
TORADOL WAS GIVEN TO PT DUE TO PAIN ON RIGHT LEG WITH PAIN SCALE OF 9/10. ALL SAFETY MEASURES IMPLEMENTED. BED IN LOW POSITION, BED WHEELS ON LOCKED AND CALL LIGHT WITHIN REACH.
[2022-06-01] VITALS: BP 97/64
--- NOTE | 2022-06-01 | NUR ---
PT IS SLEEPING. CHEST RISE AND FALL SYMMETRICALLY NOTED. RESPIRATION IS EVEN AND UNLABORED. ALL SAFETY MEASURES IMPLEMENTED. BED IN LOW POSITION, BED WHEELS ON LOCKED AND CALL LIGHT WITHIN REACH.
[2022-06-01] MEDS: PENICILLIN G POTASSIUM 2 MU in NACL 0.9% 50 ML IV SCH ×6 (00:11→19:46)
[2022-06-01] MEDS: GAUZE TP SCH ×2 (01:27→12:59)
[2022-06-01] MEDS: HYDROmorphone 1 MG/ML AMP IVP PRN ×6 (01:57→23:00)
--- NOTE | 2022-06-01 01:57 | NUR ---
PRN PAIN MEDICATION WAS GIVEN TO PT DUE TO RIGHT LEG PAIN WITH PAIN SCALE OF 9/10WITH BP OF 106/64. ALL SAFETY MEASURES IMPLEMENTED. BED IN LOW POSITION, BED WHEELS ON LOCKED AND CALL LIGHT WITHIN REACH.
--- NOTE | 2022-06-01 03:08 | NUR ---
SCHEDULED AND PRESCRIBED MEDICATION WAS GIVEN TO PT PER MD ORDER. NO COMPLAIN OF PAIN AT THIS TIME AND NO S/S OF RESPIRATORY DISTRESS NOTED. ALL SAFETY MEASURES IMPLEMENTED. BED IN LOW POSITION, BED WHEELS ON LOCKED AND CALL LIGHT WITHIN REACH.
[2022-06-01] MEDS: CLINDAMYCIN 600MG/D5W PM 50 ML IV SCH ×3 (04:22→20:45)
--- NOTE | 2022-06-01 07:02 | NUR ---
receive the patient from the table operator shila leos admitting diagnosis of right leg cellulitis . will continue to monitor
--- NOTE | 2022-06-01 07:24 | NUR ---
PT IS STABLE. ENDORSED PT TO MORNING SHIFT NURSE FOR CONTINUITY OF CARE.
[2022-06-01] MEDS: PANTOPRAZOLE 40 MG TABEC PO SCH (08:24)
[2022-06-01] MEDS: MORPHINE SULFATE 4 MG/ML SYR IV PRN ×2 (09:24→20:45)
--- NOTE | 2022-06-01 10:15 | NUR ---
the vacuum is leaking . we sealed the dressing
[2022-06-01] MEDS ORDERED: CLIN300C2 PO (10:42)
[2022-06-01] MEDS ORDERED: AMOX-999 PO (10:42)
[2022-06-01] MEDS: NON ADHERENT DRESSING TP SCH (12:59)
[2022-06-01] MEDS: DEXT 5% /NACL 0.9% 1,000 ML IV SCH (13:58)
--- NOTE | 2022-06-01 14:30 | NUR ---
coordinated with wound care and charge nurse . will be discharge home with home home health for wound vacuum
[2022-06-01 16:00] VITALS: BP 143/98
--- NOTE | 2022-06-01 16:30 | NUR ---
penicillin was renewed
--- NOTE | 2022-06-01 18:06 | NUR ---
will endorse to night assistant rn for continuity of care
--- NOTE | 2022-06-01 20:45 | NUR ---
SCHEDULED AND PRESCRIBED MEDICATION WAS GIVEN TO PT AND PRN PAIN MEDICATION DUE TO RIGHT LEG PAIN WITH PAIN SCALE OF 9/10. ALL SAFETY MEASURES IMPLEMENTED. BED IN LOW POSITION, BED WHEELS ON LOCKED AND CALL LIGHT WITHIN REACH.
--- NOTE | 2022-06-01 23:00 | NUR ---
PRN PAIN MEDICATION WAS GIVEN TO PT DUE TO RIGHT LEG PAIN WITH PAIN SCALE OF 9/10 WITH BP OF 115/63 AND PULSE OF 94. ALL SAFETY MEASURES IMPLEMENTED. BED IN LOW POSITION, BED WHEELS ON LOCKED AND CALL LIGHT WITHIN REACH.
[2022-06-02] VITALS: BP 121/58
[2022-06-02] MEDS: PENICILLIN G POTASSIUM 2 MU in NACL 0.9% 50 ML IV SCH ×6 (00:02→20:29)
[2022-06-02] MEDS: GAUZE TP SCH ×2 (01:22→13:32)
--- NOTE | 2022-06-02 02:00 | NUR ---
PT IS SLEEPING. CHEST RISE AND FALL SYMMETRICALLY NOTED. RESPIRATION IS EVEN AND UNLABORED. ALL SAFETY MEASURES IMPLEMENTED. BED IN LOW POSITION, BED WHEELS ON LOCK AND CALL LIGHT WITHIN REACH.
[2022-06-02] MEDS: HYDROmorphone 1 MG/ML AMP IVP PRN ×2 (03:06→07:40)
--- NOTE | 2022-06-02 03:37 | NUR ---
SCHEDULED AND PRESCRIBED MEDICATION WAS GIVEN TO PT PER MD ORDER. ALL SAFETY MEASURES IMPLEMENTED. BED IN LOW POSITION, BED WHEELS ON LOCK AND CALL LIGHT WITHIN REACH.
[2022-06-02] MEDS: CLINDAMYCIN 600MG/D5W PM 50 ML IV SCH ×3 (04:15→21:20)
--- NOTE | 2022-06-02 07:02 | NUR ---
receive the patinet from the second shift supervisor rn in rm [id number] [id number] admitting diagnosis of right leg cellulitis with wound vacuum . will continue rto monitor
--- NOTE | 2022-06-02 07:26 | NUR ---
PT IS STABLE. ENDORSED PT TO MORNING SHIFT NURSE FOR CONTINUITY OF CARE.
[2022-06-02] MEDS: PANTOPRAZOLE 40 MG TABEC PO SCH (07:42)
[2022-06-02 08:00] VITALS: BP 97/60
--- NOTE | 2022-06-02 08:30 | NUR ---
pharmacy notified the rn re expiring dilaudid , morphine . made aware . no renewal .
[2022-06-02] MEDS: DEXT 5% /NACL 0.9% 1,000 ML IV SCH (08:53)
--- NOTE | 2022-06-02 09:00 | NUR ---
marielle with the patinet re expiring dilaudud , morphine . the patinet was also notified that he norco , tylenol . but the patient is not agreeable . explained extensively the reasoning behind .
--- NOTE | 2022-06-02 11:30 | NUR ---
the debby called the rn about the dilaudid , morphine . requested for a call from the md .
--- NOTE | 2022-06-02 12:00 | NUR ---
the norco tylenol was offered to the patient .but refuse
[2022-06-02] MEDS ORDERED: ACET-5629 PO (12:14)
--- NOTE | 2022-06-02 13:30 | NUR ---
the md replied about the [id number] saying that the patient si [id number] . the md will call the mother tomorrow .
[2022-06-02] MEDS: NON ADHERENT DRESSING TP SCH (13:33)
--- NOTE | 2022-06-02 14:00 | NUR ---
the patinet is very much asleep and resting comfortably
[2022-06-02] MEDS: ACETAMINOPHEN 325 MG TAB PO PRN ×2 (14:30→20:36)
[2022-06-02 16:00] VITALS: BP 119/67
--- NOTE | 2022-06-02 16:40 | NUR ---
gave report to Lisette of [facility]
--- NOTE | 2022-06-02 17:00 | NUR ---
talk wityh the mother re discharge , but she is at work . cannot tack picker
[2022-06-02 17:14] VITALS: BP 97/57
--- NOTE | 2022-06-02 17:15 | NUR ---
informed the perennial house manager . talked with the patient . ok for tomorrow discharge .
--- NOTE | 2022-06-02 17:30 | NUR ---
informed the md pierce for tomorrow discharge
--- NOTE | 2022-06-02 18:35 | NUR ---
will endorse to plant operator/shift supervisor rn for continuity of care
--- NOTE | 2022-06-02 20:40 | NUR ---
PT COMPLAINT OF 10/10 PAIN. PT RECEIVED TYELNOL 650 MG PER MD ORDER AT 2035. WILL REASSESS PAIN LEVEL.
--- NOTE | 2022-06-02 22:50 | NUR ---
PT STILL REPORTS A PAIN LEVEL OF 10/10. DR WHITTEN WAS CONTACTED AND APPROVED AN ORDER FOR PERCOCET 5/325 MG Q4H PRN.
[2022-06-02] MEDS ORDERED: oxyCODONE/APAP 5/325 MG 1 TAB TAB PO PRN (22:55)
--- NOTE | 2022-06-02 23:01 | NUR ---
RECEIVED REPORT FROM DAY SHIFT NURSE FOR CONTINUITY OF CARE. PT IS AWAKE, ALERT AND ORIENTED X4. ON ROOM AIR. TRIPLE LUMEN LOCATED AT RIGHT IJ, INTACT. PT IS STABLE AT THIS TIME, AWAITING DISCHARGE FOLLOWING MORNING. SAFETY PRECAUTIONS IN PLACE, CALL LIGHT WITHIN REACH, WILL MAKE FREQ ROUNDS.
[2022-06-03] VITALS: BP 106/53
[2022-06-03] MEDS: PENICILLIN G POTASSIUM 2 MU in NACL 0.9% 50 ML IV SCH ×2 (00:41→04:00)
[2022-06-03] MEDS: GAUZE TP SCH (01:49)
[2022-06-03] MEDS: CLINDAMYCIN 600MG/D5W PM 50 ML IV SCH (05:23)
[2022-06-03] MEDS: DEXT 5% /NACL 0.9% 1,000 ML IV SCH (05:55)
[2022-06-03 08:02] VITALS: BP 106/53
--- NOTE | 2022-06-03 08:45 | NUR ---
PATIENT DISCHARGE HOME ACCOMPANIED BY MOTHER. PATIENT REFUSED WOUND CARE DRESSING CHANGED DISCHARGE. PORTABLE WOUND VAC CONNECTED WITHOUT MALFUNCTION. TEACHING PROVIDED VERBALIZED UNDERSTANDING. ALL PERSONAL BELONGINGS SENT HOME WITH PATIENTS WITH WOUND CARE SUPPLIES AND PORTABLE WOUND VAC. STABLE UPON DISCHARGED.
== END 2022-06-03 08:55 | disposition home health service (06) | DRG 710 ==
LOC: MED 19:37 → MTU 05-24 04:16
PROVIDERS: ADMIT Student in an Organized Health Care Education/Training Program; ATTEND Student in an Organized Health Care Education/Training Program
PROC: 02HV33Z Insertion of Infusion Device into Superior Vena Cava, Percutaneous Approach (ICD-10-PCS; 2022-05-24)
PROC: B548ZZA Ultrasonography of Superior Vena Cava, Guidance (ICD-10-PCS; 2022-05-24)
PROC: 0KNS0ZZ Release Right Lower Leg Muscle, Open Approach (ICD-10-PCS; 2022-05-25)
PROC: 0KNS0ZZ Release Right Lower Leg Muscle, Open Approach (ICD-10-PCS; 2022-05-25)
PROC: 0KNS0ZZ Release Right Lower Leg Muscle, Open Approach (ICD-10-PCS; 2022-05-25)
PROC: 0KNS0ZZ Release Right Lower Leg Muscle, Open Approach (ICD-10-PCS; principal; 2022-05-25 20:00)
DX: A41.9 Sepsis, unspecified organism (principal); G92.8 Other toxic encephalopathy; E43 Unspecified severe protein-calorie malnutrition; T79.A0XA Compartment syndrome, unspecified, initial encounter; E83.51 Hypocalcemia; E87.1 Hypo-osmolality and hyponatremia; L03.115 Cellulitis of right lower limb; T43.651A Poisoning by methamphetamines accidental (unintentional), initial encounter; D64.9 Anemia, unspecified; R74.01 Elevation of levels of liver transaminase levels; M25.461 Effusion, right knee; M25.462 Effusion, left knee; D75.839 Thrombocytosis, unspecified; Z20.822 Contact with and (suspected) exposure to COVID-19; M72.9 Fibroblastic disorder, unspecified; F15.10 Other stimulant abuse, uncomplicated; X58.XXXA Exposure to other specified factors, initial encounter; Z86.711 Personal history of pulmonary embolism; Z79.01 Long term (current) use of anticoagulants; Z86.718 Personal history of other venous thrombosis and embolism; Y93.89 Activity, other specified; Y92.89 Other specified places as the place of occurrence of the external cause; Y99.8 Other external cause status; Z59.00 Homelessness unspecified; Z68.28 Body mass index [BMI] 28.0-28.9, adult
CPT/HCPCS: 36415; 36556; 71045; 73590; 73701; 80048; 80053; 80202; 80305; 82150; 83036; 83605; 83735; 83880; 84100; 85025; 85610; 85651; 85730; 86140; 87040; 87070; 87075; 87081; 87205; 93925; 93971; 96365; 96375; 99291; J0330; J0558; J0610; J1170; J1885; J2001; J2060; J2250; J2270; J2405; J2540; J2543; J2704; J2710; J2765; J3010; J3370; J3372; J3490; J7060; Q0092; Q9967